=== PATIENT | female | born 1980 | race Caucasian/White ===

== ENCOUNTER 2019-06-14 07:57 | Emergency (ER) | payer MEDICAID ==
[2019-06-14] MEDS ORDERED: Morphine 2 MG/ML SYRINGE IV ONE (08:25)
[2019-06-14] MEDS ORDERED: Tamsulosin 0.4 MG Cap.ER PO ONE (08:25)
[2019-06-14] MEDS: Sodium Chloride 0.9% 1,000 ML IV SCH ×2 (08:37→09:56)
[2019-06-14] MEDS ORDERED: HYDROmorphone 2 MG/ML SDV IVPUSH ONE (09:51)
[2019-06-14] MEDS ORDERED: Sodium Chloride 0.9% 1,000 ML IV SCH (10:00)
[2019-06-14] MEDS ORDERED: Ketorolac 30 MG/ML SDV IVPUSH ONE (10:03)
[2019-06-14] MEDS ORDERED: methylPREDNISolone Sodium Succinate 125 MG/2 ML SDV IVPUSH STA (10:07)
--- NOTE | 2019-06-14 10:12 | EDM.PDOC ---
ED HPI GENERAL MEDICAL PROBLEM - General Chief Complaint: Flank Pain Stated Complaint: R SIDED PAIN Time Seen by Provider: 06/14/19 08:30 Source of Information: Reports: Patient History Limitations: Reports: No Limitations - History of Present Illness INITIAL COMMENTS - FREE TEXT/NARRATIVE: woke about 1 am today with pain in the right upper abdomen , then moved to her right CVA and now has moved to the suprapubic area. States she has increased urge to urinate but each time she goes it is in small amounts . 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 Right Flank Pain Score (Numeric/FACES): 9 - Related Data Allergies Allergy/AdvReac Type Severity Reaction Status Date / Time No Known Allergies Allergy Verified 06/14/19 08:03 Home Meds: Home Meds Hydrocodone/Acetaminophen [[place] 5-325 Tablet] 1 each PO Q6HR #10 tablet [Rx] Tamsulosin HCl [Flomax] 0.4 mg PO DAILY #30 cap.er.24h 06/14/19 [Rx] buPROPion [Wellbutrin] 350 mg PO BID 06/14/19 [History] hydrOXYzine HCL [hydrOXYzine] 50 mg PO DAILY 06/14/19 [History] predniSONE [Prednisone] 50 mg PO BIDPC #5 tablet 06/14/19 [Rx] traZODone HCl [Trazodone HCl] 50 mg PO BEDTIME PRN 06/14/19 [History] Past Medical History Genitourinary History: Reports: Other (See Below) Other Genitourinary History: history of UTI's Musculoskeletal History: Reports: Back Pain, Chronic Psychiatric History: Reports: Anxiety, Depression - Past Surgical History Musculoskeletal Surgical History: Reports: Other (See Below) Other Musculoskeletal Surgeries/Procedures:: left foot surgery Social & Family History - Family History Family Medical History: Noncontributory - Tobacco Use Smoking Status *Q: Current Every Day Smoker Years of Tobacco use: 23 Packs/Tins Daily: 0.3 - Caffeine Use Caffeine Use: Reports: Coffee, Soda - Recreational Drug Use Recreational Drug Use: No ED ROS GENERAL - Review of Systems Review Of Systems: See Below Constitutional: Reports: Weakness, Fatigue, Decreased Appetite. Denies: Fever, Chills, Malaise HEENT: Reports: No Symptoms Respiratory: Reports: No Symptoms Cardiovascular: Reports: No Symptoms Endocrine: Reports: No Symptoms GI/Abdominal: Reports: Abdominal Pain, Anorexia : Reports: Flank Pain, Frequency, Hematuria, Urgency. Denies: Dysuria, Incontinence, Urinary Retention Musculoskeletal: Reports: No Symptoms Neurological: Reports: No Symptoms Psychiatric: Reports: No Symptoms ED EXAM, RENAL/ - Physical Exam Exam: See Below Exam Limited By: No Limitations General Appearance: Alert, WD/WN, No Apparent Distress, Anxious, Other (in obvious pain ) Eye Exam: Bilateral Eye: EOMI Ears: Normal External Exam, Normal TMs Nose: Normal Inspection Throat/Mouth: Normal Oropharynx Head: Atraumatic, Normocephalic Neck: Supple, Non-Tender, Full Range of Motion Respiratory/Chest: Lungs Clear, Normal Breath Sounds Cardiovascular: Normal Peripheral Pulses, Regular Rate, Rhythm GI/Abdominal: Soft, Non-Tender. No: Guarding, Rigid Back Exam: CVA Tenderness (R) Extremities: Normal Inspection, Normal Range of Motion Neurological: Alert, Oriented Course - Vital Signs Last Recorded V/S: Last Vital Signs Temp 36.7 C 06/14/19 08:10 Pulse 95 06/14/19 08:10 Resp 20 06/14/19 08:10 BP 130/92 H 06/14/19 08:10 Pulse Ox 99 06/14/19 08:10 - Orders/Labs/Meds Orders: Active Orders 24 hr Category Date Time Status Sodium Chloride 0.9% [Normal Saline] 1,000 ml Med 06/14/19 08:30 Active IV ASDIRECTED Sodium Chloride 0.9% [Normal Saline] 1,000 ml Med 06/14/19 10:00 Active IV ASDIRECTED Medication Orders Sodium Chloride (Normal Saline) 1,000 mls @ 999 mls/hr IV ASDIRECTED TEJAS Last Infusion: 06/14/19 09:38 Dose: 999 mls/hr Admin: 06/14/19 08:37 Dose: 999 mls/hr Sodium Chloride (Normal Saline) 1,000 mls @ 999 mls/hr IV ASDIRECTED TEJAS Last Admin: 06/14/19 10:05 Dose: 999 mls/hr Labs: Laboratory Tests 06/14/19 06/14/19 06/14/19 Range/Units 08:33 08:33 09:20 WBC 12.8 H (4.5-12.0) X10-3/uL RBC 4.71 (3.23-5.20) x10(6)uL Hgb 14.3 (11.5-15.5) g/dL Hct 40.7 (30.0-51.3) % MCV 86.4 (80-96) fL MCH 30.3 (27.7-33.6) pg MCHC 35.1 (32.2-35.4) g/dL RDW 12.1 (11.5-15.5) % Plt Count 285 (125-369) X10(3)uL MPV 8.7 (7.4-10.4) fL Neut % (Auto) 78.8 (46-82) % Lymph % (Auto) 15.5 (13-37) % [place] % (Auto) 4.9 (4-12) % Eos % (Auto) 1 (1.0-5.0) % Baso % (Auto) 0 (0-2) % Neut # (Auto) 10.1 H (1.6-8.3) # Lymph # (Auto) 2.0 (0.6-5.0) # [place] # (Auto) 0.6 (0.0-1.3) # Eos # (Auto) 0.1 (0.0-0.8) # Baso # (Auto) 0.0 (0.0-0.2) # Sodium 139 (135-145) mmol/L Potassium 4.2 (3.5-5.3) mmol/L Chloride 104 (100-110) mmol/L Carbon Dioxide 26 (21-32) mmol/L BUN 14 (7-18) mg/dL Creatinine 1.1 H (0.55-1.02) mg/dL Est Cr Clr Drug Dosing 70.64 mL/min Estimated GFR (MDRD) 56 L (>60) BUN/Creatinine Ratio 12.7 (9-20) Glucose 157 H (80-116) mg/dL Calcium 9.0 (8.6-10.2) mg/dL Urine Color Yellow (YELLOW) Urine Appearance Slightly cloudy (CLEAR) Urine pH 5.0 (5.0-6.5) Ur Specific [place] 1.020 (1.010-1.025) Urine Protein 100 H (NEGATIVE) mg/dL Urine Glucose (UA) Normal (NORMAL) mg/dL Urine Ketones 15 H (NEGATIVE) mg/dL Urine Occult Blood Moderate H (NEGATIVE) Urine Nitrite Negative (NEGATIVE) Urine Bilirubin Negative (NEGATIVE) Urine Urobilinogen Normal (NEGATIVE) mg/dL Ur Leukocyte Esterase Negative (NEGATIVE) Urine RBC 5-10 H (0-5) Urine WBC 0-5 (0-5) Ur Squamous Epith Cells Moderate H (NS,R,O) Urine Bacteria Moderate H (NS) Meds: Medications Generic Name Dose Route Start Last Admin Trade Name Freq PRN Reason Stop Dose Admin Sodium Chloride 1,000 mls @ 999 mls/hr 06/14/19 08:30 06/14/19 09:38 Normal Saline IV Infused ASDIRECTED TEJAS Infusion Sodium Chloride 1,000 mls @ 999 mls/hr 06/14/19 10:00 06/14/19 10:05 Normal Saline IV 999 mls/hr ASDIRECTED TEJAS Administration Discontinued Medications Generic Name Dose Route Start Last Admin Trade Name Freq PRN Reason Stop Dose Admin Hydromorphone HCl 1 mg 06/14/19 09:51 06/14/19 09:55 Dilaudid IVPUSH 06/14/19 09:52 1 mg ONETIME ONE Administration Ketorolac Tromethamine 30 mg 06/14/19 10:03 06/14/19 10:10 Toradol IVPUSH 06/14/19 10:04 30 mg ONETIME ONE Administration Methylprednisolone Sodium Succinate 250 mg 06/14/19 10:07 06/14/19 10:11 Solu-Medrol IVPUSH 06/14/19 10:08 250 mg NOW STA Administration Methylprednisolone Sodium Succinate Confirm 06/14/19 10:13 Solu-Medrol Administered 06/14/19 10:14 Dose 125 mg .ROUTE .STK-MED ONE Morphine Sulfate 4 mg 06/14/19 08:25 06/14/19 08:43 Morphine IV 06/14/19 08:26 4 mg ONETIME ONE Administration Tamsulosin HCl 0.4 mg 06/14/19 08:25 06/14/19 08:43 Flomax PO 06/14/19 08:26 0.4 mg ONETIME ONE Administration - Re-Assessments/Exams Free Text/Narrative Re-Assessment/Exam: 06/14/19 11:01 doing well , pain controlled with morphin and the dilaudid labs and CT abd reviewed with pt : has 3.7mm stone in the r Ureter given IVF 2 liters , solumedrol , flomax 06/14/19 11:03 pt not able to pass stone Departure - Departure Time of Disposition: 11:15 Disposition: Home, Self-Care 01 Condition: Fair Clinical Impression: Ureteric colic, Right ureteral stone, Right distal ureteral calculus - Discharge Information *PRESCRIPTION DRUG MONITORING PROGRAM REVIEWED*: Not Applicable *COPY OF PRESCRIPTION DRUG MONITORING REPORT IN PATIENT ELIAN: Not Applicable Prescriptions: Hydrocodone/Acetaminophen [[place] 5-325 Tablet] 1 each PO Q6HR #10 tablet predniSONE [Prednisone] 50 mg PO BIDPC #5 tablet Tamsulosin HCl [Flomax] 0.4 mg PO DAILY #30 cap.er.24h Instructions: Kidney Stones, [id number] Referrals: Pavel Ruiz MD [Primary Care Provider] - Forms: ED Department Discharge Additional Instructions: 1) Increase fliud intake 2)Strain urine , if stone obtained , you will need to take to lab for analysis 3) make appt to see your PCP for further evaluation Sepsis Event Note - Evaluation Sepsis Screening Result: No Definite Risk - Focused Exam Vital Signs: Vital Signs Temp Pulse Resp BP Pulse Ox 06/14/19 08:10 36.7 C 95 20 130/92 H 99 Date Exam was Performed: 06/14/19 Time Exam was Performed: 11:15 - My Orders Last 24 Hours: My Active Orders 06/14/19 08:30 Sodium Chloride 0.9% [Normal Saline] 1,000 ml IV ASDIRECTED 06/14/19 10:00 Sodium Chloride 0.9% [Normal Saline] 1,000 ml IV ASDIRECTED - Assessment/Plan Last 24 Hours: My Active Orders 06/14/19 08:30 Sodium Chloride 0.9% [Normal Saline] 1,000 ml IV ASDIRECTED 06/14/19 10:00 Sodium Chloride 0.9% [Normal Saline] 1,000 ml IV ASDIRECTED
[2019-06-14] MEDS ORDERED: methylPREDNISolone Sodium Succinate 125 MG/2 ML SDV ONE (10:13)
--- NOTE | 2019-06-14 10:51 | CT ---
INDICATION: Right flank pain, question renal calculi sediment, question renal stone in UA. CT ABDOMEN AND PELVIS WITHOUT CONTRAST: Spiral, 2.5 mm axial sections were obtained through the abdomen and pelvis without contrast with sagittal and coronal reconstructions utilizing renal calculus protocol 06/14/19 - no comparisons. Total exam DLP was 1992.60 mGy-cm. The lower lung jeong and pleural spaces visualized appear normal. The heart is normal in size. No pericardial effusion was seen. The left kidney appeared normal as do the adrenal glands, liver, gallbladder, spleen, and pancreas. No retroperitoneal mass was seen. There is a thickening of the urinary bladder wall, which may be at least partly due to lack of distention. Renal fascial thickening is noted on the right with pyelocaliectasis and fat stranding around the renal pelvis. There is also ureterectasis with some minimal fat stranding about the ureter down to the ureterovesical junction. In the urinary bladder, there is a calculus which could represent a recently passed stone or one that is almost passed. It measured a maximum of 3.7 mm. No other ureteral, bladder or renal calculi were suggested. No significant mass lesions, organomegaly or free fluid collections were otherwise suggested in the abdomen or pelvis. The appendix appeared normal visualized on axial images 121 through 128 and coronal images 65 through 74. IMPRESSION: Obstructive uropathy of at least moderately severe degree on the right due to a 3.7 mm calculus, which appears to have almost passed through the bladder wall or is just recently passed through the bladder wall on the right at the ureterovesical junction. Report was called to Dr. Azul at approximately 1000 hours. [facility]
== END 2019-06-14 11:33 | disposition home or self-care (01) ==
LOC: FB.ED 07:57
DX: N20.1 Calculus of ureter (principal); F41.9 Anxiety disorder, unspecified; F32.9 Major depressive disorder, single episode, unspecified; F17.210 Nicotine dependence, cigarettes, uncomplicated; Z79.899 Other long term (current) drug therapy; Z86.73 Personal history of transient ischemic attack (TIA), and cerebral infarction without residual deficits
CPT/HCPCS: 36415; 74176; 80048; 81001; 85025; 96361; 96374; 96375; 99284; A9270; J1170; J1885; J2270; J2930; J7030